=== PATIENT | male | born 1950 | race Caucasian/White ===

== ENCOUNTER 2017-11-07 11:00 | Inpatient (IN) | payer OTHER ==
[~2017-11-07] VITALS: Ht 182.9 cm; Wt 88.5 kg
[2017-11-07] MEDS ORDERED: ATORVASTATIN CA10 MG PO (13:39)
[2017-11-07] MEDS ORDERED: ENALAPRIL MALEA10 MG PO (13:39)
[2017-11-07] MEDS ORDERED: ADULT LOW DOSE81 M1 PO (13:40)
== END 2017-11-14 10:03 | disposition home or self-care (01) | DRG 708 ==
LOC: O/R 11-12 06:08 → SURH 11-12 06:08
PROVIDERS: Urology
PROC: 07TC0ZZ Resection of Pelvis Lymphatic, Open Approach (ICD-10-PCS; 2017-11-12)
PROC: 0VT00ZZ Resection of Prostate, Open Approach (ICD-10-PCS; principal; 2017-11-12 07:00)
DX: C61 Malignant neoplasm of prostate (principal); I10 Essential (primary) hypertension; E78.4 Other hyperlipidemia

== ENCOUNTER 2017-11-15 15:35 | Inpatient (IN) | payer OTHER ==
[~2017-11-15] VITALS: Ht 182.9 cm; Wt 88.5 kg
[~2017-11-15 15:35] MED LIST: ADULT LOW DOSE81 M1 PO; ATORVASTATIN CA10 MG PO; ENALAPRIL MALEA10 MG PO
== END 2017-11-18 14:17 | disposition home or self-care (01) | DRG 724 ==
LOC: ER 15:35 → SEC-K 19:47 → SURH 11-16 16:24
DX: C61 Malignant neoplasm of prostate (principal); E78.4 Other hyperlipidemia; I10 Essential (primary) hypertension; R50.82 Postprocedural fever

== ENCOUNTER 2018-01-23 17:45 | Inpatient (IN) | payer OTHER ==
[~2018-01-23] VITALS: Ht 182.9 cm; Wt 93.4 kg
[2018-01-23] MEDS ORDERED: URSO FORTE500 MG PO (18:01)
== END 2018-01-26 11:44 | disposition home or self-care (01) | DRG 605 ==
LOC: ER 17:45 → MEDJ 01-24 11:27 → SEC-K 01-24 11:27 → MEDJ 01-24 11:46
PROC: 30233N1 Transfusion of Nonautologous Red Blood Cells into Peripheral Vein, Percutaneous Approach (ICD-10-PCS; 2018-01-24)
PROC: 0DB68ZX Excision of Stomach, Via Natural or Artificial Opening Endoscopic, Diagnostic (ICD-10-PCS; principal; 2018-01-25)
DX: S70.11XA Contusion of right thigh, initial encounter (principal); D62 Acute posthemorrhagic anemia; W18.39XA Other fall on same level, initial encounter; Y93.02 Activity, running; Y92.89 Other specified places as the place of occurrence of the external cause; Y99.8 Other external cause status; I10 Essential (primary) hypertension; E78.4 Other hyperlipidemia; I87.2 Venous insufficiency (chronic) (peripheral); Z85.46 Personal history of malignant neoplasm of prostate

== ENCOUNTER 2018-03-20 07:27 | Outpatient (CLI) | payer OTHER ==
[~2018-03-20 07:27] MED LIST changes: +URSO FORTE500 MG PO
[2018-03-21] MEDS ORDERED: URSODIOL500 MG (15:57)
== END 2018-03-20 08:08 | disposition home or self-care (01) ==
LOC: MRI 07:27
DX: I62.00 Nontraumatic subdural hemorrhage, unspecified (principal)
CPT/HCPCS: 70553; A9579

== ENCOUNTER → 2018-03-21 | Emergency (ER) | payer OTHER ==
[~2018-03-21] VITALS: Ht 188 cm; Wt 81.6 kg
[~2018-03-21] MED LIST changes: +URSODIOL500 MG
== END | disposition designated cancer center or children's hospital (05) ==
LOC: ER 15:36
DX: I62.02 Nontraumatic subacute subdural hemorrhage (principal); M47.892 Other spondylosis, cervical region

== ENCOUNTER 2018-06-03 14:29 | Outpatient (CLI) | payer OTHER | END 2018-06-03 14:42 | disposition home or self-care (01) | LOC: TOM 14:29 | DX: S06.5X0A Traumatic subdural hemorrhage without loss of consciousness, initial encounter (principal) ==

== ENCOUNTER → 2018-06-06 | Day surgery (SDC) | payer OTHER | END | disposition home or self-care (01) | LOC: AMB-ENDOS 05-28 14:00 → ADM 05-28 14:00 → AMB-ENDOS 08:36 | DX: K80.50 Calculus of bile duct without cholangitis or cholecystitis without obstruction (principal) ==

== ENCOUNTER 2018-08-27 11:05 | Outpatient (CLI) | payer OTHER | END 2018-08-27 11:12 | disposition home or self-care (01) | LOC: TOM 11:05 | DX: S06.5X9A Traumatic subdural hemorrhage with loss of consciousness of unspecified duration, initial encounter (principal) ==

== ENCOUNTER 2018-12-25 05:44 | Day surgery (SDC) | payer OTHER ==
[~2018-12-25 05:44] MED LIST changes: +SILDENAFIL20 MG PO; +[UNRECOGNIZED DRUG - OTHER]
[2018-12-25] MEDS ORDERED: PERCOCET 5-3251 EACH PO (12:56)
[2018-12-25] MEDS ORDERED: SURFAK240 M1 PO (12:57)
[2018-12-25] MEDS ORDERED: POLY119PG PO (12:57)
[2018-12-25] MEDS ORDERED: SULFAMETHOXAZO1 EACH PO (12:58)
== END 2018-12-25 18:40 | disposition home or self-care (01) ==
LOC: CIR.AMB 05:44
DX: K40.90 Unilateral inguinal hernia, without obstruction or gangrene, not specified as recurrent (principal); K43.2 Incisional hernia without obstruction or gangrene; D17.6 Benign lipomatous neoplasm of spermatic cord

== ENCOUNTER 2019-07-12 19:01 | Emergency (ER) | payer OTHER ==
[~2019-07-12] VITALS: Ht 182.9 cm; Wt 99.8 kg
[~2019-07-12 19:01] MED LIST changes: +PERCOCET 5-3251 EACH PO; +POLY119PG PO; +SULFAMETHOXAZO1 EACH PO; +SURFAK240 M1 PO
[2019-07-12] MEDS ORDERED: SIMVASTATIN10 MG (19:09)
== END 2019-07-12 23:05 | disposition home or self-care (01) ==
LOC: ER 19:01
DX: S83.8X1A Sprain of other specified parts of right knee, initial encounter (principal); M25.561 Pain in right knee; X50.0XXA Overexertion from strenuous movement or load, initial encounter; Y93.89 Activity, other specified; Y92.22 Religious institution as the place of occurrence of the external cause; Y99.8 Other external cause status

== ENCOUNTER → 2024-09-18 11:55 | Outpatient (CLI) | payer OTHER ==
[~2024-09-18 11:55] MED LIST changes: +SIMVASTATIN10 MG
[2024-09-18 12:31] LABS: PH,URINE 5.5 (5.0-8.0); URINE APPEARANCE Clear; URINE BILIRRUBIN Negative (NEGATIVE); URINE BLOOD Negative; URINE COLOR Dark Yellow; URINE GLUCOSE Negative (NEGATIVE); URINE KETONE Negative (NEGATIVE); URINE LEUKOCYTE Negative; URINE NITRATE Negative; URINE PROTEIN Trace (NEGATIVE); URINE UROBILINOGEN 0.2 E.U./dl
[2024-09-18 12:32] LABS: URINE BACTERIA 381.7 uL (0.0-1933); URINE EPITHELIAL CELLS 2.3 uL (0.0-38.8); URINE RBC 6.3 uL (0.0-20.8)
[2024-09-18 12:32] LABS: HEMATOCRIT 37.2 % (39.0-48.0); HEMOGLOBIN 12.7 g/dL (13-16.00); MEAN CELL VOLUME 86.2 fL (80.0-100.00); MEAN CORPUSCULAR HEMOGLOBIN 29.4 pg (27.00-32.0); MEAN CORPUSCULAR HGB CONC 34.1 g/dl (32.0-36.0); PLATELET COUNT 288 K/uL (150-450); RED BLOOD COUNT 4.31 M/uL (4.00-6.00); RED CELL DISTRIBUTION WIDTH 13.5 % (11.5-14.5)
[2024-09-18 12:41] LABS: URINE CAST 0.58 uL (0.0-1.40); URINE WBC 0.9 uL (0.0-23.2)
[2024-09-18 12:46] LABS: ERYTHROCYTE SEDIMENTATION RATE 44 mm/hr
[2024-09-18 13:23] LABS: ALBUMIN 3.4 gm/dL (3.4-5.0); BILIRUBIN TOTAL 0.44 mg/dL (0.3-1.2); CREATININE SERUM 0.88 mg/dL (0.70-1.30); GFR 84.89; GLOBULINA 3.8 G/DL (2.4-3.5); POTASSIUM 4.38 mEq/L (3.5-5.1); TOTAL PROTEIN 7.2 gm/dL (6.4-8.2)
[2024-09-18 13:24] LABS: C-REACTIVE PROTEIN 17.7 MG/DL (0.00-0.29)
== END | disposition home or self-care (01) ==
LOC: LAB 11:55
PROVIDERS: ATTEND Specialist
DX: K85.90 Acute pancreatitis without necrosis or infection, unspecified (principal); D64.9 Anemia, unspecified; E11.65 Type 2 diabetes mellitus with hyperglycemia; J45.998 Other asthma; N39.0 Urinary tract infection, site not specified; M35.3 Polymyalgia rheumatica

== ENCOUNTER 2024-09-19 08:35 | Outpatient (CLI) | payer OTHER | END 2024-09-19 08:41 | disposition home or self-care (01) | LOC: SONOGRAMA 08:35 | PROVIDERS: ATTEND Specialist | DX: K85.90 Acute pancreatitis without necrosis or infection, unspecified (principal) ==

== ENCOUNTER 2024-09-22 19:46 | Inpatient (IN) | payer OTHER ==
[~2024-09-22] VITALS: Ht 180.3 cm; Wt 94.3 kg
[2024-09-22] MEDS ORDERED: ENALAPRIL MALEA10 MG PO (20:32)
[2024-09-22] MEDS ORDERED: ZETIA10 MG PO (20:33)
--- NOTE | 2024-09-22 20:36 | NUR ---
PTE ALERTA Y ORIENTADO X3 EN COMPANIA DE FAMILIAR REFIERE VENIR POR QUE AL MISMO SE LE ENCONTRO MASA EN HIGADO Y PIEDRAS EN VESICULA. PTE TIENE EN MANO ORDENES DE MEDICO PRIMARIO PARA QUE SEA HOSPITALIZADO. SE MIDEN S/V Y SE UBICA. CESAR NUNEZ ES EL MEDICO PRMARIO DEL PACIENTE.
[2024-09-22] MEDS ORDERED: CEFAZOLIN SODIUM 1,000 MG VIAL IV ONE (21:00)
[2024-09-22] MEDS ORDERED: ONDANSETRON HCL 2 MG/ML VIAL IV ONE (21:00)
[2024-09-22] MEDS ORDERED: FAMOtidine 10 MG/ML (4ML VIAL) IV ONE (21:00)
[2024-09-22] MEDS ORDERED: 0.9 % SODIUM CHLORIDE 1,000 ML IV SCH ×2 (21:00→21:30)
[2024-09-22] MEDS ORDERED: ACETAMINOPHEN 500 MG GEL..CAP PO PRN (21:30)
[2024-09-22] MEDS ORDERED: ONDANSETRON HCL 4 MG in 0.9 % SODIUM CHLORIDE 50 ML IV PRN (21:30)
[2024-09-22 21:33] LABS: HEMATOCRIT 36.7 % (39.0-48.0); HEMOGLOBIN 12.4 g/dL (13-16.00); MEAN CELL VOLUME 85.9 fL (80.0-100.00); MEAN CORPUSCULAR HGB CONC 33.8 g/dl (32.0-36.0); PLATELET COUNT 368 K/uL (150-450); RED BLOOD COUNT 4.27 M/uL (4.00-6.00); RED CELL DISTRIBUTION WIDTH 13.6 % (11.5-14.5)
--- NOTE | 2024-09-22 21:42 | NUR ---
SE ORIENTA PTE SOBRE TX A SEGUIR, EL MISMO REFIERE ENTENDER. SE DANIEL MUESTRA DE LAB, SE CANALIZA Y SE ADMINISTRA MED CECILIA ORDEN MEDICA
[2024-09-22 21:58] LABS: INR 1.19; PARTIAL THROMBOPLASTIN TIME 32.2 SECONDS (22.0-34.0); PROTHROMBIN TIME 12.8 SECONDS (9.0-11.5)
[2024-09-22 22:15] LABS: ALBUMIN 2.9 gm/dL (3.4-5.0); BILIRUBIN TOTAL 0.45 mg/dL (0.3-1.2); CREATININE SERUM 0.97 mg/dL (0.70-1.30); GFR 75.86; GLOBULINA 3.9 G/DL (2.4-3.5); POTASSIUM 4.97 mEq/L (3.5-5.1); TOTAL PROTEIN 6.8 gm/dL (6.4-8.2)
[2024-09-22 23:15] LABS: URINE APPEARANCE Clear; URINE BILIRRUBIN Negative (NEGATIVE); URINE BLOOD Negative; URINE COLOR Dark Yellow; URINE GLUCOSE Negative (NEGATIVE); URINE KETONE Negative (NEGATIVE); URINE LEUKOCYTE Negative; URINE NITRATE Negative; URINE PROTEIN Negative (NEGATIVE); URINE UROBILINOGEN 0.2 E.U./dl
[2024-09-22 23:19] LABS: URINE EPITHELIAL CELLS 1.7 uL (0.0-38.8); URINE RBC 2.7 uL (0.0-20.8)
[2024-09-22 23:23] LABS: URINE CAST 0.29 uL (0.0-1.40); URINE WBC 1.1 uL (0.0-23.2)
[2024-09-23] MEDS ORDERED: PIPERACILLIN/TAZOBACTAM SODIUM 3.375 GM in DEXTROSE 5 % IN WATER 100 ML IV SCH
[2024-09-23 01:00] VITALS: BP 126/76
[2024-09-23 06:07] VITALS: BP 131/78; O2SAT 96
[2024-09-23] MEDS ORDERED: HALOPERIDOL LACTATE 5 MG/ML AMPUL IJ STA (08:02)
[2024-09-23 08:06] VITALS: BP 120/70; O2SAT 99
[2024-09-23] MEDS ORDERED: HALOPERIDOL LACTATE 5 MG/ML AMPUL IJ PRN (08:15)
[2024-09-23] MEDS ORDERED: FAMOTIDINE/PF 20 MG in 0.9 % SODIUM CHLORIDE 8 ML IV PUSH SCH (09:00)
[2024-09-23] MEDS ORDERED: ENALAPRIL MALEATE 10 MG TABLET PO SCH (09:00)
[2024-09-23] MEDS ORDERED: OXYBUTYNIN CHLORIDE 5 MG TABLET PO SCH (09:00)
[2024-09-23 18:03] VITALS: BP 151/82
[2024-09-23] MEDS ORDERED: ACETAMINOPHEN 325 MG TABLET PO STA (18:15)
[2024-09-24 02:57] VITALS: BP 128/78; O2SAT 97
[2024-09-24 08:50] VITALS: BP 130/79; O2SAT 93
[2024-09-24 12:00] LABS: HEMATOCRIT 35.4 % (39.0-48.0); HEMOGLOBIN 12.3 g/dL (13-16.00); MEAN CELL VOLUME 84.3 fL (80.0-100.00); MEAN CORPUSCULAR HEMOGLOBIN 29.2 pg (27.00-32.0); MEAN CORPUSCULAR HGB CONC 34.6 g/dl (32.0-36.0); PLATELET COUNT 381 K/uL (150-450); RED CELL DISTRIBUTION WIDTH 13.7 % (11.5-14.5)
[2024-09-24 12:27] LABS: INR 1.16; PARTIAL THROMBOPLASTIN TIME 31.7 SECONDS (22.0-34.0); PROTHROMBIN TIME 12.5 SECONDS (9.0-11.5)
[2024-09-24 12:36] LABS: ALBUMIN 2.8 gm/dL (3.4-5.0); BILIRUBIN TOTAL 0.5 mg/dL (0.3-1.2); CALCIUM 8.8 mg/dL (8.5-10.1); CREATININE SERUM 0.94 mg/dL (0.70-1.30); GFR 78.67; GLOBULINA 3.7 G/DL (2.4-3.5); MAGNESIUM 2.2 mg/dL (1.8-2.4); PHOSPHOROUS 3.7 mg/dL (2.5-4.9); POTASSIUM 4.54 mEq/L (3.5-5.1); TOTAL PROTEIN 6.5 gm/dL (6.4-8.2)
[2024-09-24 12:37] LABS: C-REACTIVE PROTEIN 19.3 MG/DL (0.00-0.29)
[2024-09-24] MEDS ORDERED: MORPHINE SULFATE 4 MG/ML CARTRIDGE IV SCH (18:00)
[2024-09-24 20:42] LABS: ALBUMIN 2.7 gm/dL (3.4-5.0); BILIRUBIN TOTAL 0.6 mg/dL (0.3-1.2); CALCIUM 8.8 mg/dL (8.5-10.1); CREATININE SERUM 0.92 mg/dL (0.70-1.30); GFR 80.64; GLOBULINA 3.6 G/DL (2.4-3.5); POTASSIUM 4.68 mEq/L (3.5-5.1); TOTAL PROTEIN 6.3 gm/dL (6.4-8.2)
[2024-09-24 20:43] LABS: BILIRUBIN TOTAL 0.58 mg/dL (0.3-1.2); BILIRUBIN,CONJUGATED 0.25 mg/dL (0.0-0.2); BILIRUBIN,UNCONJUGATED 0.33 mg/dL (0.0-0.6)
[2024-09-24 22:43] VITALS: BP 163/92
[2024-09-25 03:24] VITALS: BP 156/83; O2SAT 95
[2024-09-25 06:57] LABS: ALBUMIN 2.5 gm/dL (3.4-5.0); BILIRUBIN TOTAL 0.77 mg/dL (0.3-1.2); BILIRUBIN,CONJUGATED 0.25 mg/dL (0.0-0.2); BILIRUBIN,UNCONJUGATED 0.52 mg/dL (0.0-0.6); CALCIUM 8.4 mg/dL (8.5-10.1); CREATININE SERUM 0.92 mg/dL (0.70-1.30); GFR 80.64; GLOBULINA 3.5 G/DL (2.4-3.5); POTASSIUM 4.51 mEq/L (3.5-5.1)
[2024-09-25 11:11] VITALS: BP 158/78; O2SAT 95
[2024-09-25 18:27] VITALS: BP 158/85; O2SAT 97
[2024-09-26 03:04] VITALS: BP 132/71; O2SAT 93
[2024-09-26 06:41] LABS: HEMATOCRIT 35.5 % (39.0-48.0); HEMOGLOBIN 12.2 g/dL (13-16.00); MEAN CELL VOLUME 84.4 fL (80.0-100.00); MEAN CORPUSCULAR HEMOGLOBIN 28.9 pg (27.00-32.0); MEAN CORPUSCULAR HGB CONC 34.3 g/dl (32.0-36.0); PLATELET COUNT 468 K/uL (150-450); RED CELL DISTRIBUTION WIDTH 13.8 % (11.5-14.5)
[2024-09-26 07:25] LABS: BILIRUBIN TOTAL 0.61 mg/dL (0.3-1.2); BILIRUBIN,CONJUGATED 0.23 mg/dL (0.0-0.2); BILIRUBIN,UNCONJUGATED 0.38 mg/dL (0.0-0.6); CALCIUM 8.7 mg/dL (8.5-10.1); CREATININE SERUM 0.87 mg/dL (0.70-1.30); GFR 86.01; POTASSIUM 4.42 mEq/L (3.5-5.1)
[2024-09-26 08:37] VITALS: BP 143/81; O2SAT 98
[2024-09-26] MEDS ORDERED: AMLODIPINE BESYLATE 5 MG TABLET PO SCH (09:00)
[2024-09-26 09:23] LABS: PH,URINE 5.5 (5.0-8.0); URINE APPEARANCE Turbid; URINE BILIRRUBIN Negative (NEGATIVE); URINE BLOOD Negative; URINE COLOR Dark Yellow; URINE GLUCOSE Negative (NEGATIVE); URINE KETONE Trace (NEGATIVE); URINE LEUKOCYTE Negative; URINE NITRATE Negative; URINE PROTEIN 30 (NEGATIVE); URINE UROBILINOGEN 0.2 E.U./dl
[2024-09-26 09:24] LABS: URINE EPITHELIAL CELLS 7.2 uL (0.0-38.8); URINE RBC 10.1 uL (0.0-20.8); URINE WBC 8.3 uL (0.0-23.2)
[2024-09-26 09:49] LABS: URINE CAST 0.14 uL (0.0-1.40); URINE CRYSTALS MANY /HPF
[2024-09-26] MEDS ORDERED: LEVALBUTEROL HCL 0.63 MG/3 ML SOLUTION IH SCH (13:00)
[2024-09-26] MEDS ORDERED: BENZONATATE 200 MG CAPSULE PO SCH (13:00)
[2024-09-26] MEDS ORDERED: GUAIFENESIN 100 MG/5 ML BLIST.PACK PO SCH (14:00)
[2024-09-26 18:14] VITALS: BP 142/84
[2024-09-27 02:40] VITALS: BP 157/84; O2SAT 98
[2024-09-27 10:44] VITALS: BP 142/85; O2SAT 94
[2024-09-27] MEDS ORDERED: AMOX-CLAV 875-1 EAC1 PO (11:32)
[2024-09-27] MEDS ORDERED: AMLODIPINE BESYL5 MG PO (11:32)
[2024-09-27] MEDS ORDERED: ATORVASTATIN CA10 MG PO (11:32)
[2024-09-27] MEDS ORDERED: BENZONATATE200 M1 PO (11:32)
[2024-09-27] MEDS ORDERED: PEPCID AC20 MG PO (11:32)
[2024-09-27] MEDS ORDERED: TRAMADOL HCL50 MG PO (11:32)
== END 2024-09-27 11:40 | disposition home or self-care (01) | DRG 415 ==
LOC: ER 19:48 → MEDJ 22:00 → SEC-K 22:00 → MEDJ 23:07
PROVIDERS: General Practice; Internal Medicine Infectious Disease; Surgery; ADMIT Specialist; ATTEND Specialist
PROC: BW21YZZ Computerized Tomography (CT Scan) of Abdomen and Pelvis using Other Contrast (ICD-10-PCS; 2024-09-22)
PROC: 0FT40ZZ Resection of Gallbladder, Open Approach (ICD-10-PCS; principal; 2024-09-24 16:15)
DX: K80.10 Calculus of gallbladder with chronic cholecystitis without obstruction (principal); J90 Pleural effusion, not elsewhere classified; J98.11 Atelectasis; I10 Essential (primary) hypertension